=== PATIENT | male | born 1975 | race Caucasian/White ===

== ENCOUNTER 2019-03-20 20:29 | Observation (INO) ==
[2019-03-20] MEDS ORDERED: Isovue-370 500 ML BOTTLE IVP ONE (20:45)
[2019-03-20] MEDS ORDERED: 0.9 % Sodium Chloride 1,000 ML IVC ONE ×2 (20:54→22:05)
[2019-03-20 21:20] LABS: Mean Platelet Volume 8.4 fL (9.4-12.4); Monocytes % 8.5 %
[2019-03-20 21:22] LABS: Basophils # 0.1 K/mcL (0.0-0.2); Basophils % 0.3 %; Hemoglobin 14.3 g/dL (12.9-16.9); Immature Granulocytes % 1.5 % (0-4); Lymphocytes # 1.2 K/mcL (0.6-4.6); Lymphocytes % 4.3 %; Mean Corpuscular HGB Conc 34.9 g/dL (31.6-35.5); Mean Corpuscular Hemoglobin 29.3 pg (28.0-33.3); Monocytes # 2.4 K/mcL (0.0-1.3); Neutrophils # 23.9 K/mcL (1.6-8.9); Platelet Count 269 K/mcL (140-400); Red Blood Count 4.88 M/mcL (4.19-5.50); Red Cell Distribution Width 13.7 % (11.5-14.5); Segmented Neutrophils % 85.4 %
[2019-03-20 21:28] LABS: INR 1.2; Prothrombin Time 13.5 Seconds (9.4-12.1)
[2019-03-20 21:30] LABS: Activated Partial Thrombo Time 34.1 Seconds (26.0-36.0)
[2019-03-20 21:45] LABS: BUN/Creatinine Ratio 13 (6-26); Blood Urea Nitrogen 16 mg/dL (6-20); Carbon Dioxide 25 mEq/L (23-29); Chloride 102 mEq/L (98-107); Glucose 112 mg/dL (70-105); Osmolality,Calculated 288 (280-300); Potassium 3.1 mEq/L (3.5-5.1); Sodium 138 mEq/L (136-145); eGFR For African Americans > 60 (> 60); eGFR For Non-African Americans > 60 (> 60)
[2019-03-20 21:46] LABS: Troponin I < 0.03 ng/mL (< 0.04)
[2019-03-20 21:49] LABS: Platelet Estimate Normal (Normal)
[2019-03-20] MEDS ORDERED: levoFLOXacin 500 MG/100 ML 500 MG/100 ML BAG IVPB ONE (23:15)
[2019-03-21] MEDS ORDERED: *HR* LORazepam 0.5 MG TABLET PO PRN (01:24)
[2019-03-21] MEDS: 0.9 % Sodium Chloride 1,000 ML IVC SCH ×2 (03:59→20:51)
[2019-03-21] MEDS ORDERED: Aspirin 325 MG TABLET PO ONE (04:42)
[2019-03-21] MEDS: *HR* Heparin 5,000 UNIT/ML VIAL SQ SCH ×3 (05:32→20:41)
[2019-03-21 06:16] LABS: Basophils # 0.1 K/mcL (0.0-0.2); Basophils % 0.3 %; Hematocrit 38.2 % (37.5-50.1); Immature Granulocytes % 2.4 % (0-4); Lymphocytes # 0.9 K/mcL (0.6-4.6); Lymphocytes % 3.8 %; Mean Corpuscular HGB Conc 33.2 g/dL (31.6-35.5); Mean Corpuscular Hemoglobin 29.4 pg (28.0-33.3); Mean Corpuscular Volume 88.4 fL (83.0-100.0); Mean Platelet Volume 8.7 fL (9.4-12.4); Monocytes # 1.9 K/mcL (0.0-1.3); Monocytes % 8.5 %; Neutrophils # 19.4 K/mcL (1.6-8.9); Platelet Count 228 K/mcL (140-400); Red Blood Count 4.32 M/mcL (4.19-5.50); Red Cell Distribution Width 13.8 % (11.5-14.5); White Blood Count 22.9 K/mcL (4.3-11.1)
[2019-03-21 06:17] LABS: Hemoglobin 12.7 g/dL (12.9-16.9)
[2019-03-21 06:37] LABS: Alanine Aminotransferase 10 Units/L (7-52); Albumin 3.4 g/dL (3.5-5.7); Albumin/Globulin Ratio 1.1 (1.1-2.2); Alkaline Phosphatase 57 Units/L (34-104); Aspartate Amino Transferase 9 Units/L (13-39); BUN/Creatinine Ratio 17 (6-26); Blood Urea Nitrogen 18 mg/dL (6-20); Calcium 8.3 mg/dL (8.6-10.3); Carbon Dioxide 24 mEq/L (23-29); Chloride 103 mEq/L (98-107); Globulin 3.2 g/dL (2.4-3.5); Glucose 112 mg/dL (70-105); Osmolality,Calculated 291 (280-300); Potassium 2.6 mEq/L (3.5-5.1); Sodium 139 mEq/L (136-145); Total Protein 6.6 g/dL (6.4-8.9); eGFR For African Americans > 60 (> 60); eGFR For Non-African Americans > 60 (> 60)
[2019-03-21] MEDS ORDERED: hydroCHLOROthiazide 25 MG TABLET PO SCH (09:00)
[2019-03-21] MEDS: Cholecalciferol (D-3) 1,000 UNIT (25MCG) TABLET PO SCH (10:43)
[2019-03-21] MEDS: ARIPiprazole 10 MG TABLET PO SCH ×2 (10:43→12:33)
[2019-03-21] MEDS: Topiramate 100 MG TABLET PO SCH ×3 (10:43→20:42)
[2019-03-21] MEDS ORDERED: Perflutren Lipid Microsphere 1.3 ML in 0.9 % Sodium Chloride 8.7 ML IVP ONE (13:32)
[2019-03-21 13:41] LABS: Adenovirus Not Detected (Not Detect); Bordetella Pertussis Not Detected (Not Detect); Chlamydophila pneumoniae Not Detected (Not Detect); Coronavirus 229E Not Detected (Not Detect); Coronavirus HKU1 Not Detected (Not Detect); Coronavirus NL63 Not Detected (Not Detect); Coronavirus OC43 Not Detected (Not Detect); Human Metapneumovirus Not Detected (Not Detect); Human Rhinovirus/Enterovirus Not Detected (Not Detect); Influenza A Subtype 2009 H1 Not Detected (Not Detect); Influenza B Not Detected (Not Detect); Mycoplasma pneumoniae Not Detected (Not Detect); Parainfluenza Virus 1 Not Detected (Not Detect); Parainfluenza Virus 2 Not Detected (Not Detect); Parainfluenza Virus 3 Not Detected (Not Detect); Parainfluenza Virus 4 Not Detected (Not Detect); Respiratory Syncytial Virus Not Detected (Not Detect)
[2019-03-21 16:48] LABS: BUN/Creatinine Ratio 18 (6-26); Blood Urea Nitrogen 18 mg/dL (6-20); Carbon Dioxide 27 mEq/L (23-29); Chloride 107 mEq/L (98-107); Glucose 111 mg/dL (70-105); Osmolality,Calculated 293 (280-300); Sodium 140 mEq/L (136-145); eGFR For African Americans > 60 (> 60); eGFR For Non-African Americans > 60 (> 60)
[2019-03-21] MEDS ORDERED: levoFLOXacin 750 MG/150 ML 750 MG/150 ML BAG IVPB SCH (18:00)
[2019-03-22 05:07] LABS: Hematocrit 35.7 % (37.5-50.1); Hemoglobin 11.7 g/dL (12.9-16.9); Mean Corpuscular HGB Conc 32.8 g/dL (31.6-35.5); Mean Corpuscular Hemoglobin 29.3 pg (28.0-33.3); Mean Corpuscular Volume 89.3 fL (83.0-100.0); Mean Platelet Volume 8.5 fL (9.4-12.4); Platelet Count 201 K/mcL (140-400); Red Cell Distribution Width 13.9 % (11.5-14.5); White Blood Count 15.8 K/mcL (4.3-11.1)
[2019-03-22 05:25] LABS: BUN/Creatinine Ratio 16 (6-26); Blood Urea Nitrogen 14 mg/dL (6-20); Calcium 7.8 mg/dL (8.6-10.3); Carbon Dioxide 23 mEq/L (23-29); Chloride 110 mEq/L (98-107); Glucose 103 mg/dL (70-105); Osmolality,Calculated 289 (280-300); Potassium 3.2 mEq/L (3.5-5.1); Sodium 139 mEq/L (136-145); eGFR For African Americans > 60 (> 60); eGFR For Non-African Americans > 60 (> 60)
[2019-03-22] MEDS: *HR* Heparin 5,000 UNIT/ML VIAL SQ SCH (05:55)
[2019-03-22 07:08] VITALS: BP 120/69
[2019-03-22] MEDS: 0.9 % Sodium Chloride 1,000 ML IVC SCH ×2 (07:33→08:06)
[2019-03-22] MEDS: Topiramate 100 MG TABLET PO SCH (08:06)
[2019-03-22] MEDS: Cholecalciferol (D-3) 1,000 UNIT (25MCG) TABLET PO SCH (08:06)
[2019-03-22] MEDS: ARIPiprazole 10 MG TABLET PO SCH (08:06)
[2019-03-22] MEDS ORDERED: levoFLOXacin 750 MG TABLET PO SCH (12:00)
== END 2019-03-22 13:00 | disposition home or self-care (01) ==
LOC: CDU 20:29 → EMEROOARM 20:29 → SUATTDRO 03-21 00:10 → CDU 03-21 02:05 → 3BNU 03-21 15:52
PROVIDERS: ADMIT Student in an Organized Health Care Education/Training Program; ATTEND Internal Medicine